=== PATIENT | female | born 2000 | race Caucasian/White ===

== ENCOUNTER 2020-09-16 23:19 | Emergency (ER) | payer OTHER ==
[~2020-09-16] VITALS: Ht 149.9 cm; Wt 80.1 kg
[2020-09-16] MEDS ORDERED: MULTTAB20 PO (23:56)
[2020-09-17 02:04] LABS: BASO % 0.3 % (0.0-1.0); EOS # 0.1 10^3/uL (0.0-0.5); EOS % 0.8 % (0.0-3.0); HEMATOCRIT 37.5 % (36.0-47.0); HEMOGLOBIN 12.8 g/dl (12.0-15.5); LYMPH # 2.5 10^3/uL (1.5-5.0); MEAN CORPUSCULAR HEMOGLOBIN 29.8 pg (27.0-33.0); MEAN CORPUSCULAR HGB CONC 34.1 g/dl (32.0-36.5); MEAN CORPUSCULAR VOLUME 87.2 fl (80.0-96.0); MONO # 0.7 10^3/uL (0.0-0.8); MONO % 5.8 % (2.0-8.0); NEUTROPHILS # 8.5 10^3/uL (1.5-8.5); NEUTROPHILS % 71.8 % (36.0-66.0); PLATELET COUNT, AUTOMATED 285 10^3/uL (150-450); WHITE BLOOD COUNT 11.8 10^3/uL (4.0-10.0)
--- NOTE | 2020-09-17 02:07 | REPVR ---
PROCEDURE INFORMATION: Exam: US , Transvaginal Exam date and time: 09/17/2020 1:44 AM Age: 20 years old Clinical indication: Lmp or gestational age (in weeks): 7w; Antepartum complications; Bleeding; ; Additional info: Vaginal bleeding in first trimester TECHNIQUE: Imaging protocol: Real-time transvaginal obstetrical ultrasound of the maternal pelvis with image documentation. Transvaginal imaging was used for better evaluation of the fetus, adnexa, and/or cervix. COMPARISON: No relevant prior studies available. FINDINGS: Gestation: Gestational sac within the uterus with pole and yolk sac. heart rate: heartbeat of 130 bpm. Placenta: Subchorionic hemorrhage measuring 3.4 x 1.5 x 1.3 cm. BIOMETRY: Junt[place]-Rump length: Juntura-rump length is 6.3 mm suggesting an age of 6 weeks 6 days. MATERNAL: Uterus: The uterus measures 9.1 cm in its cephalocaudad dimension and 5.6 x 6.8 cm in its AP and lateral dimensions. Right adnexa: The right ovary measures 2.7 x 1.6 x 1.6 cm. Left adnexa: The left ovary is not seen. IMPRESSION: 1. Single live intrauterine gestation with an estimated age of 6 weeks 6 days. 2. Subchronic hemorrhage measuring 3.4 x 1.5 x 1.3 cm. Electronically signed by: Moustapha Head On 09/17/2020 02:06:28 AM
[2020-09-17 02:53] LABS: BLOOD UREA NITROGEN 8 MG/DL (7-18); CALCIUM LEVEL 8.9 MG/DL (8.5-10.1); CARBON DIOXIDE LEVEL 25 MEQ/L (21-32); CHLORIDE LEVEL 110 MEQ/L (98-107); CREATININE FOR GFR 0.55 MG/DL (0.55-1.30); GLUCOSE, FASTING 81 MG/DL (70-100); HCG, SERUM QUANTITATIVE 41628 MIU/ML; POTASSIUM SERUM 3.8 MEQ/L (3.5-5.1); SODIUM LEVEL 141 MEQ/L (136-145)
[2020-09-17 05:30] VITALS: BP 131/68
== END 2020-09-17 05:39 | disposition home or self-care (01) ==
LOC: M ED 23:19
DX: O20.0 Threatened abortion (principal); O20.8 Other hemorrhage in early pregnancy; Z3A.01 Less than 8 weeks gestation of pregnancy; Z79.899 Other long term (current) drug therapy

== ENCOUNTER → 2020-09-21 | Outpatient (REF) | payer OTHER ==
[~2020-09-21] MED LIST: MULTTAB20 PO
[2020-09-21 13:19] LABS: HEMATOCRIT 39.6 % (36.0-47.0); HEMOGLOBIN 13.9 g/dl (12.0-15.5); MEAN CORPUSCULAR HEMOGLOBIN 30.9 pg (27.0-33.0); MEAN CORPUSCULAR HGB CONC 35.1 g/dl (32.0-36.5); PLATELET COUNT, AUTOMATED 305 10^3/uL (150-450); WHITE BLOOD COUNT 9.2 10^3/uL (4.0-10.0)
[2020-09-21 13:42] LABS: HEMOGLOBIN A1c 4.3 %
[2020-09-21 14:26] LABS: HIV 1&2 SCREEN CENTAUR NEGATIVE (NEGATIVE)
== END ==
LOC: M PLALAB 10:39
PROVIDERS: ATTEND Advanced Practice Midwife
DX: Z36.89 Encounter for other specified antenatal screening (principal); Z3A.01 Less than 8 weeks gestation of pregnancy